=== PATIENT | male | born 1985 | race Caucasian/White ===

== ENCOUNTER 2017-08-22 00:02 | Emergency (ER) | payer SELFPAY ==
[2017-08-22] MEDS ORDERED: Adacel (T-DAP) 0.5 ML VIAL ONE (00:47)
[2017-08-22] MEDS ORDERED: Lidocaine 1% w/Epinephrine 1:100K 20 ML VIAL ONE (01:15)
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
== END 2017-08-22 02:32 | disposition home or self-care (01) ==
LOC: ERS 00:02
DX: S01.111A Laceration without foreign body of right eyelid and periocular area, initial encounter (principal); F31.9 Bipolar disorder, unspecified; F17.210 Nicotine dependence, cigarettes, uncomplicated; Z71.6 Tobacco abuse counseling; W19.XXXA Unspecified fall, initial encounter; Y92.59 Other trade areas as the place of occurrence of the external cause
CPT/HCPCS: 12011; 70450; 72125; 90471; 90715; J2001

== ENCOUNTER 2017-08-30 16:57 | Emergency (ER) | payer SELFPAY | END 2017-08-30 17:30 | disposition left against medical advice (07) | LOC: ERS 16:57 | DX: Z53.21 Procedure and treatment not carried out due to patient leaving prior to being seen by health care provider (principal) ==